=== PATIENT | male | born 1955 | race Caucasian/White ===

== ENCOUNTER 2020-02-08 06:49 | Day surgery (SDC) | payer MEDICARE, BC ==
[~2020-02-08] VITALS: Ht 182.9 cm; Wt 72.5 kg
[~2020-02-08 06:49] MED LIST: ALLO300 PO; AMIT50 PO; ATEN50 PO; ATENOLOL; CELEXA; CEPH500 PO; COLC.6 PO; COLCHICINE0.6 MG PO; CYCL10 PO; Cymbalta20 MG PO; DIPATR PO; EPIN.3I IM; ESCI20 PO; FLUSAL1005 IH; HYDACE5 PO; IBUP600 PO; LISHYD2012 PO; OLME20 PO; PRED10 PO; PRED20 PO; PROM25 PO; RANI150 PO; TEMA30 PO
--- NOTE | 2020-02-08 08:14 | NUR ---
Ambulatory in Day Surgery. Patient states colon prep results clear. History, Chart, Medications and Allergies reviewed before start of procedure. Lungs slightly coarse, R>L. Slight cough. Denies SOB. Pre-Op teaching done. Pt verbalizes understanding. Patient States Post-Procedure ride home has been arranged. Patient confirms NPO status and agrees with scheduled surgery.
--- NOTE | 2020-02-08 08:52 | NUR ---
02/08/20 0852 Brianne Diaz History, Chart, Medications and Allergies reviewed before start of procedure.PATIENT DETERMINED TO BE ASA APPROPRIATE FOR PROPOFOL SEDATION PRIOR TO START OF PROCEDURE BY .MONITOR INTACT WITH CONTINUOUS PULSE OXIMETRY AND INTERMITTENT BP.3-LEAD EKG REVIEWED WITH PHYSICIAN PRIOR TO START OF PROCEDURE.O2 VIA N/C INTACT THROUGHOUT SEDATION/PROCEDURE.
--- NOTE | 2020-02-08 10:03 | NUR ---
Patient up to Ambulate independently. Gait steady. Discharge instructions reviewed with patient. Patient verbalizes understanding. Copy given to patient to take home. Patient States Post-Procedure ride home has been arranged. Discharged via wheelchair to private car for ride home.
== END 2020-02-08 23:10 | disposition home or self-care (01) ==
LOC: ORSCMMR 06:49 → ORD 08:30 → ORSCMMR 23:10
PROVIDERS: Internal Medicine Gastroenterology
PROC: 0DBP8ZX Excision of Rectum, Via Natural or Artificial Opening Endoscopic, Diagnostic (ICD-10-PCS; principal; 2020-02-08 08:30)
PROC: 0DB68ZX Excision of Stomach, Via Natural or Artificial Opening Endoscopic, Diagnostic (ICD-10-PCS; principal; 2020-02-08 08:30)
PROC: 0DB98ZX Excision of Duodenum, Via Natural or Artificial Opening Endoscopic, Diagnostic (ICD-10-PCS; principal; 2020-02-08 08:30)
PROC: 0DBL8ZX Excision of Transverse Colon, Via Natural or Artificial Opening Endoscopic, Diagnostic (ICD-10-PCS; principal; 2020-02-08 08:30)
DX: R10.13 Epigastric pain (principal); Z12.11 Encounter for screening for malignant neoplasm of colon; Z86.010 Personal history of colon polyps; D12.3 Benign neoplasm of transverse colon; K62.1 Rectal polyp; K29.80 Duodenitis without bleeding; K57.30 Diverticulosis of large intestine without perforation or abscess without bleeding; Z86.19 Personal history of other infectious and parasitic diseases; I10 Essential (primary) hypertension; F32.9 Major depressive disorder, single episode, unspecified; Z79.899 Other long term (current) drug therapy
CPT/HCPCS: 88305; J2704; J7120

== ENCOUNTER 2025-04-08 09:25 | Day surgery (SDC) | payer MEDICARE, BC ==
[~2025-04-08] VITALS: Ht 185.4 cm; Wt 70.9 kg
[2025-04-08] VITALS (14 sets, daily range): BP systolic 90–171; BP diastolic 48–109
[~2025-04-08 09:25] MED LIST changes: +CELEXA40 M1 PO; +Crestor40 MG PO; +ELIQUIS5 M2 PO; +FAMO20; +HYDCHL25 PO; +Hytrin1 MG PO; +LISI20 PO; +TOPROL XL25 MG PO
--- NOTE | 2025-04-08 11:51 | NUR ---
PT D/C HOME DISCHARGE INSTRUCTIONS GIVEN PT VERBALIZED UNDERSTANDING REPEAT COLONOSCOPY IN 5 YEARS PT TOLD TO START ELIQUIS AND METOPROLOL WHEN THEY GET HOME
== END 2025-04-08 23:00 | disposition home or self-care (01) ==
LOC: ORSCMMR 09:25 → ORD 10:30 → ORSCMMR 10:30
PROVIDERS: Internal Medicine Gastroenterology
PROC: 0DJD8ZZ Inspection of Lower Intestinal Tract, Via Natural or Artificial Opening Endoscopic (ICD-10-PCS; principal; 2025-04-08 10:30)
DX: Z12.11 Encounter for screening for malignant neoplasm of colon (principal); Z86.0101 Personal history of adenomatous and serrated colon polyps; K57.30 Diverticulosis of large intestine without perforation or abscess without bleeding; J44.9 Chronic obstructive pulmonary disease, unspecified; I48.0 Paroxysmal atrial fibrillation; I10 Essential (primary) hypertension; I73.9 Peripheral vascular disease, unspecified; F32.A Depression, unspecified; N40.0 Benign prostatic hyperplasia without lower urinary tract symptoms; M10.9 Gout, unspecified; G47.30 Sleep apnea, unspecified; E78.00 Pure hypercholesterolemia, unspecified; Z79.01 Long term (current) use of anticoagulants; Z79.899 Other long term (current) drug therapy; Z87.891 Personal history of nicotine dependence
CPT/HCPCS: J2704; J7120